=== PATIENT | male | born 1950 | race Caucasian/White ===

== ENCOUNTER 2023-06-12 15:33 | Emergency (ER) | payer OTHER ==
[2023-06-12 18:01] LABS: Absolute Lymphocytes (CBC) 1.7 K/uL (0.7-4.9); Hematocrit 38.4 % (39.6-49.0); Lymphocytes % 11.6 % (15.3-44.8); MCV 90.3 fL (80-100); MPV 8.8 fL (7.6-11.3); RBC Red Blood Cell Count 4.25 M/uL (4.33-5.43)
[2023-06-12 18:21] LABS: Specific Gravity 1.023 (1.005-1.030); Urine Bacteria 20-50 /HPF (<20); Urine Bilirubin NEGATIVE (Negative); Urine Blood 3+ (OVER) (Negative); Urine Clarity Extremely Turbid (Clear); Urine Color Dark-Brown (Yellow); Urine Glucose NEGATIVE (Negative); Urine Protein 2+ (Negative); Urine RBC >50 /HPF (None Seen); Urine Urobilinogen Normal (Normal); Urine WBC Clump Many /HPF (None Seen); Urine pH 5.5 (5.0-7.0)
[2023-06-12 18:25] LABS: Albumin 3.4 g/dL (3.4-5.0); Bilirubin Total 0.4 mg/dL (0.2-1.0); Potassium 4.8 mEq/L (3.5-5.1); Protein, Total 7.2 g/dL (6.4-8.2)
[2023-06-12] MEDS ORDERED: NA CHLORIDE 0.9% 1,000 ML ONE (18:28)
--- NOTE | 2023-06-12 18:38 | ER ---
Nurse's Notes [facility] Name: Timothy Padilla Age: 73 yrs Sex: Male : 1950 Arrival Date: 06/12/2023 Time: 15:33 Bed 14 Private MD: Diagnosis: UTI/ Urinary tract infection, site not specified;Hematuria, unspecified Presentation: 06/12 15:52 Chief complaint: Patient states: "This morning, I started having burning pain with mb9 urination, urgency, frequency, and my urine was pink tingled. Then this afternoon, my urine was red and haven't produced more than a few tbsp of urine and the pain is significant.". Coronavirus screen: Vaccine status: Patient reports receiving the 2nd dose of the covid vaccine. Ebola Screen: No symptoms or risks identified at this time. Initial Sepsis Screen: Does the patient meet any 2 criteria? No. Patient's initial sepsis screen is negative. Does the patient have a suspected source of infection? No. Patient's initial sepsis screen is negative. Risk Assessment: Do you want to hurt yourself or someone else? Patient reports no desire to harm self or others. Onset of symptoms was June 12, 2023. 15:52 Method Of Arrival: Wheelchair mb9 15:52 Acuity: MALIKA 4 mb9 Triage Assessment: 15:56 General: Appears in no apparent distress. Behavior is calm, cooperative. Pain:. Neuro: mb9 Mercado Agitation-Sedation Scale (RASS): 0 - Alert and Calm Level of Consciousness is awake, alert, obeys commands, Oriented to person, place, time, situation, Appropriate for age. Cardiovascular: Patient's skin is warm and dry. Respiratory: Airway is patent Respiratory effort is even, unlabored, Respiratory pattern is regular, symmetrical. : Reports burning with urination, pain with urination, urgency, urinary frequency. Derm: Skin is pink, warm \\T\\ dry. Musculoskeletal: Range of motion: intact in all extremities. Historical: - Allergies: 15:54 No Known Allergies; mb9 - Home Meds: 15:54 Allopurinol Oral [Active]; Metformin Oral [Active]; mb9 - PMHx: 15:54 Hypertensive disorder; CHF; Diabetes mellitus; gout; mb9 - PSHx: 15:54 None; mb9 - Immunization history:: Adult Immunizations up to date. - Social history:: Smoking status: Patient denies any tobacco usage or history of. Screenin:00 [facility] ED Fall Risk Assessment (Adult) History of falling in the last 3 months, kc6 including since admission No falls in past 3 months (0 pts) Confusion or Disorientation No (0 pts) Intoxicated or Sedated No (0 pts) Impaired Gait Yes (1 pt) Mobility Assist Device Used Yes (1 pt) Altered Elimination No (0 pt) Score/Fall Risk Level 0 - 2 = Low Risk. Abuse screen: Denies threats or abuse. Denies injuries from another. Nutritional screening: No deficits noted. Tuberculosis screening: No symptoms or risk factors identified. Assessment: 15:57 Reassessment: see triage assessment. mb9 18:00 General: Appears in no apparent distress. comfortable, obese, unkempt, Behavior is kc6 calm, cooperative, appropriate for age. Neuro: Level of Consciousness is awake, alert, obeys commands, Oriented to person, place, time, situation, Appropriate for age. Cardiovascular: Capillary refill < 3 seconds. Respiratory: Airway is patent Trachea midline Respiratory effort is even, unlabored, Respiratory pattern is regular, symmetrical. GI: No signs and/or symptoms were reported involving the gastrointestinal system. : Urine is blood tinged, Reports burning with urination, pain with urination, urinary frequency. EENT: No signs and/or symptoms were reported regarding the EENT system. Derm: No signs and/or symptoms reported regarding the dermatologic system. Skin is intact, is healthy with good turgor, Skin is pink, warm \\T\\ dry. Musculoskeletal: No signs and/or symptoms reported regarding the musculoskeletal system. Circulation, motion, and sensation intact. Capillary refill < 3 seconds, Range of motion: intact in all extremities. Vital Signs: 15:52 BP 119 / 68; Pulse 89; Resp 18; Temp 98.2; Pulse Ox 97% on R/A; Weight 213.19 kg; mb9 Height 6 ft. 2 in. ; Pain 0/10; 18:35 BP 119 / 100; Pulse 97; Resp 19 S; Pulse Ox 100% on R/A; kc6 19:40 BP 123 / 62; Pulse 79; Resp 18; Pulse Ox 98% on R/A; pf1 15:52 Body Mass Index 60.34 (213.19 kg, 187.96 cm) mb9 15:52 Pain Scale: Adult mb9 ED Course: 15:35 Patient arrived in ED. im 15:54 Triage completed. mb9 15:54 Arm band placed on. mb9 15:56 Vida Pires FNP-C [facility]. kb 15:56 Pato Johnson MD is Attending Physician. kb 18:12 Julia Stanford, CAN is Primary Nurse. kc6 18:15 Patient has correct armband on for positive identification. Bed in low position. Call mm9 light in reach. Side rails up X2. Pulse ox on. NIBP on. 18:15 CBC with Diff Sent. mm9 18:15 CMP Sent. mm9 18:15 Urinalysis w/ reflexes Sent. mm9 18:16 Initial lab(s) drawn, by me, sent to lab. Urine collected: clean catch specimen, blood mm9 tinged. 18:38 Jamil Foster MD is Referral Physician. kb 18:43 Inserted saline lock: 22 gauge in left hand, using aseptic technique. kc6 19:40 No provider procedures requiring assistance completed. IV discontinued, intact, pf1 bleeding controlled, No redness/swelling at site. Pressure dressing applied. 19:42 Provided Education on: prescription education. pf1 Administered Medications: 18:34 Drug: NS 0.9% IV 1000 ml Route: IV; Rate: 1000 ml; Site: left hand; kc6 19:41 Follow up: Response: No adverse reaction; Marked relief of symptoms; IV Status: pf1 Completed infusion; IV Intake: 700ml 18:43 Drug: Rocephin IV 1 grams Route: IV; Rate: calculated rate; Site: left hand; kc6 19:19 Follow up: Response: No adverse reaction; IV Status: Completed infusion; IV Intake: [id number] 19:41 Follow up: Response: No adverse reaction; IV Status: Completed infusion; IV Intake: [id number] Medication: 19:42 VIS not applicable for this client. pf1 Intake: 19:19 IV: 10ml; Total: 10ml. kc6 19:41 IV: 10ml; Total: 20ml. pf1 19:41 IV: 700ml; Total: 720ml. pf1 Outcome: 18:37 Discharge ordered by . kb 19:41 Discharged to home via wheelchair. pf1 19:41 Condition: improved 19:41 Discharge instructions given to patient, Instructed on discharge instructions, follow up and referral plans. Demonstrated understanding of instructions, follow-up care, medications, Prescriptions given X 1. 19:42 Patient left the ED. pf1 Signatures: Vida Pires, CRITICAL POWER INSTALL TECHNICIAN-C CRITICAL POWER INSTALL TECHNICIAN-CkJulia Dhillon RN RN kc6 Josie Jarvis Mary Beth, RN RN mb9 Maggi Miranda RN RN pf1 Ingris Melgar
--- NOTE | 2023-06-12 18:38 | EDPHYS ---
Physician Documentation [facility] Name: Timothy Padilla Age: 73 yrs Sex: Male : 1950 Arrival Date: 06/12/2023 Time: 15:33 Bed 14 Private MD: ED Physician Pato Johnson HPI: 06/12 17:11 This 73 yrs old Male presents to ER via Wheelchair with complaints of Blood in urine. kb 17:11 The patient presents with urinary symptoms, dysuria, urinary frequency, hematuria. kb Onset: The symptoms/episode began/occurred this morning. Modifying factors: The symptoms are alleviated by nothing, the symptoms are aggravated by nothing. Associated signs and symptoms: Pertinent positives: dysuria, hematuria, Pertinent negatives: abdominal pain, constipation, diarrhea, fever, nausea, vomiting. Severity of symptoms: At their worst the symptoms were moderate, in the emergency department the symptoms are unchanged. The patient has not experienced similar symptoms in the past. The patient has not recently seen a physician. Historical: - Allergies: 15:54 No Known Allergies; mb9 - Home Meds: 15:54 Allopurinol Oral [Active]; Metformin Oral [Active]; mb9 - PMHx: 15:54 Hypertensive disorder; CHF; Diabetes mellitus; gout; mb9 - PSHx: 15:54 None; mb9 - Immunization history:: Adult Immunizations up to date. - Social history:: Smoking status: Patient denies any tobacco usage or history of. ROS: 17:10 Constitutional: Negative for fever, chills, and weight loss. kb 17:10 : Positive for urinary symptoms, small amounts, hematuria, burning with urination. 17:10 All other systems are negative. Exam: 17:10 Constitutional: This is a well developed, well nourished patient who is awake, alert, kb and in no acute distress. Head/Face: Normocephalic, atraumatic. ENT: Moist Mucous membranes Cardiovascular: Regular rate and rhythm with a normal S1 and S2. No gallops, murmurs, or rubs. No pulse deficits. Respiratory: Respirations even and unlabored. No increased work of breathing. Talking in full sentences Abdomen/GI: Soft, non-tender. No distention Skin: Warm, dry with normal turgor. Normal color. MS/ Extremity: Pulses equal, no cyanosis. Neurovascular intact. Full, normal range of motion. Neuro: Awake and alert, GCS 15, oriented to person, place, time, and situation. Moves all extremities. Normal gait. Vital Signs: 15:52 BP 119 / 68; Pulse 89; Resp 18; Temp 98.2; Pulse Ox 97% on R/A; Weight 213.19 kg; mb9 Height 6 ft. 2 in. ; Pain 0/10; 18:35 BP 119 / 100; Pulse 97; Resp 19 S; Pulse Ox 100% on R/A; kc6 19:40 BP 123 / 62; Pulse 79; Resp 18; Pulse Ox 98% on R/A; pf1 15:52 Body Mass Index 60.34 (213.19 kg, 187.96 cm) mb9 15:52 Pain Scale: Adult mb9 MDM: 15:56 Patient medically screened. kb 17:10 Differential diagnosis: UTI, calculus of kidney, pyelonephritis. Data reviewed: vital kb signs, nurses notes. 18:34 Management of patient was discussed with the following: Dr Johnson. Agrees with kb antibiotics and follow up with urology. Counseling: I had a detailed discussion with the patient and/or guardian regarding: the historical points, exam findings, and any diagnostic results supporting the discharge/admit diagnosis, lab results, the need for outpatient follow up, a family practitioner, a urologist, to return to the emergency department if symptoms worsen or persist or if there are any questions or concerns that arise at home. 06/12 16:01 Order name: CBC with Diff; Complete Time: 18:20 kb 06/12 16:01 Order name: CMP; Complete Time: 18:30 kb 06/12 16:01 Order name: Urinalysis w/ reflexes; Complete Time: 18:23 kb 06/12 18:25 Order name: Urine Culture EDMS 06/12 16:01 Order name: IV Saline Lock; Complete Time: 18:34 kb 06/12 16:01 Order name: Labs collected and sent; Complete Time: 18:15 kb Administered Medications: 18:34 Drug: NS 0.9% IV 1000 ml Route: IV; Rate: 1000 ml; Site: left hand; kc6 19:41 Follow up: Response: No adverse reaction; Marked relief of symptoms; IV Status: pf1 Completed infusion; IV Intake: 700ml 18:43 Drug: Rocephin IV 1 grams Route: IV; Rate: calculated rate; Site: left hand; kc6 19:19 Follow up: Response: No adverse reaction; IV Status: Completed infusion; IV Intake: [id number] 19:41 Follow up: Response: No adverse reaction; IV Status: Completed infusion; IV Intake: [id number] Disposition: 20:20 Co-signature as Attending Physician, Pato Johnson MD I agree with the assessment and kdr plan of care. Disposition Summary: 06/12/23 18:37 Discharge Ordered Location: Home kb Condition: Stable kb Diagnosis - UTI/ Urinary tract infection, site not specified kb - Hematuria, unspecified kb Followup: kb - With: Emergency Department - When: As needed - Reason: Worsening of condition Followup: kb - With: Private Physician - When: 2 - 3 days - Reason: Recheck today's complaints, Continuance of care, Re-evaluation by your physician Followup: kb - With: Jamil Foster MD - When: 2 - 3 days - Reason: Recheck today's complaints Discharge Instructions: - Discharge Summary Sheet kb - Hematuria, Adult kb - Urinary Tract Infection, Adult, [id number] kb Forms: - Medication Reconciliation Form kb - Thank You Letter kb - Antibiotic Education kb - Prescription Opioid Use kb - Patient Portal Instructions kb Prescriptions: - Augmentin 875-125 mg Oral Tablet - take 1 tablet by ORAL route every 12 hours for 10 days; 20 tablet; Refills: 0, kb Product Selection Permitted Signatures: Dispatcher [employer] EDVida Moran, MERONC ELECTRIC DISTRIBUTION ENGINEER-Pato Dunaway MD MD [facility] Julia Stanford RN RN kc6 Celina Lutz RN RN mb9 Maggi Miranda RN pf1 Corrections: (The following items were deleted from the chart) 16:13 16:02 Stone Protocol+CT.RAD.BRZ ordered. EDNJ EDMS
[2023-06-12] MEDS ORDERED: CEFTRIAXONE 1000 MG/VIAL ONE (18:48)
[2023-06-12 19:52] VITALS: TEMP 98.2
[2023-06-12 19:54] VITALS: BP 123/62; O2SAT 98
== END 2023-06-12 19:42 | disposition home or self-care (01) ==
LOC: ER 15:33
DX: N39.0 Urinary tract infection, site not specified (principal); E11.9 Type 2 diabetes mellitus without complications; I10 Essential (primary) hypertension; I50.9 Heart failure, unspecified
CPT/HCPCS: 96365; 96361; 87088; 85025; 81001; 87086; 36415; 80053; 99284; J7030; J0696

== ENCOUNTER 2024-05-17 17:07 | Emergency (ER) | payer OTHER ==
[2024-05-17] MEDS ORDERED: NA CHLORIDE 0.9% 500 ML ONE (18:51)
[2024-05-17 19:39] LABS: Absolute Basophils 0.1 K/uL (0-0.5); Absolute Eosinophils 0.2 K/uL (0-0.5); Absolute Lymphocytes (CBC) 1.7 K/uL (0.7-4.9); Absolute Monocytes 1.1 K/uL (0.1-1.3); Basophils % 0.5 % (0-1.3); Eosinophils % 1.2 % (0-4.4); Hematocrit 37.5 % (39.6-49.0); Hemoglobin 11.8 g/dL (13.6-17.9); Lymphocytes % 13.3 % (15.3-44.8); MCH 26.9 pg (27.0-35.0); MCHC 31.4 g/dL (32.0-36.0); MCV 85.7 fL (80-100); MPV 8.8 fL (7.6-11.3); Monocytes % 8.1 % (3.3-12.3); Neutrophils % 76.9 % (41.7-73.7); Nucleated Red Blood Cells % 0.1 % (0-0); Platelets 256 thou/uL (152-406); RBC Red Blood Cell Count 4.37 M/uL (4.33-5.43); Red Cell Distribution Width 19.2 % (12.1-15.2)
[2024-05-17 19:59] LABS: Anion Gap 11.6 mEq/L (5.0-15.0); Potassium 4.6 mEq/L (3.5-5.1)
[2024-05-17 21:59] LABS: Specific Gravity 1.022 (1.005-1.030); Sqamous Epithelial <5 /HPF (None Seen); Urine Bacteria None Seen /HPF (<20); Urine Bilirubin NEGATIVE (Negative); Urine Blood Negative (Negative); Urine Clarity Turbid (Clear); Urine Color Yellow (Yellow); Urine Culture Reflex Order NOT NEEDED; Urine Glucose NEGATIVE (Negative); Urine Ketones NEGATIVE (Negative); Urine Microscopic Reflex YN ORDER UMIC; Urine Mucus Slight /HPF (None Seen); Urine Nitrite NEGATIVE (Negative); Urine Protein TRACE (Negative); Urine RBC <5 /HPF (None Seen); Urine Urobilinogen Normal (Normal); Urine WBC <5 /HPF (<5); Urine pH 5.5 (5.0-7.0)
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
[2024-05-18 04:22] VITALS: BP 136/76; TEMP 97.9; O2SAT 99
== END 2024-05-18 01:47 | disposition home or self-care (01) ==
LOC: ER 17:07
DX: T67.5XXA Heat exhaustion, unspecified, initial encounter (principal); R11.2 Nausea with vomiting, unspecified
CPT/HCPCS: 85025; 81001; 80048; 36415; 82550; 99284; J7040

== ENCOUNTER 2024-05-18 16:28 | Emergency (ER) | payer OTHER ==
[2024-05-18 19:08] LABS: Absolute Basophils 0.1 K/uL (0-0.5); Absolute Eosinophils 0.1 K/uL (0-0.5); Absolute Lymphocytes (CBC) 1.9 K/uL (0.7-4.9); Absolute Monocytes 1.1 K/uL (0.1-1.3); Absolute Neutrophil 12.3 K/uL (1.8-8.0); Basophils % 0.9 % (0-1.3); Eosinophils % 0.9 % (0-4.4); Hematocrit 38.2 % (39.6-49.0); Lymphocytes % 12.4 % (15.3-44.8); MCH 26.9 pg (27.0-35.0); MCHC 31.4 g/dL (32.0-36.0); MCV 85.7 fL (80-100); MPV 8.9 fL (7.6-11.3); Monocytes % 6.8 % (3.3-12.3); Nucleated RBC Absolute Count 0.1 (0-0); Nucleated Red Blood Cells % 0.4 % (0-0); Platelets 252 thou/uL (152-406); RBC Red Blood Cell Count 4.45 M/uL (4.33-5.43); Red Cell Distribution Width 18.8 % (12.1-15.2)
[2024-05-18 19:25] LABS: Anion Gap 12.9 mEq/L (5.0-15.0); Magnesium 1.3 mg/dL (1.6-2.4); Potassium 4.9 mEq/L (3.5-5.1)
--- NOTE | 2024-05-18 19:50 | ER ---
Nurse's Notes [facility] Name: Timothy Padilla Age: 73 yrs Sex: Male : 1950 Arrival Date: 05/18/2024 Time: 16:28 Bed 21 Private MD: Diagnosis: Weakness;Hypomagnesemia Presentation: 05/18 17:21 Chief complaint: Patient states: Pt states he urinated on himself while sitting in tl4 wheelchair. Pt c/o burning in his groin from irritation. Pt also c/o chills, hands being cold. Pt states he does not have power at his residence. Coronavirus screen: At this time, the client does not indicate any symptoms associated with coronavirus-19. Ebola Screen: No symptoms or risks identified at this time. Initial Sepsis Screen: Does the patient meet any 2 criteria? No. Patient's initial sepsis screen is negative. Does the patient have a suspected source of infection? No. Patient's initial sepsis screen is negative. Risk Assessment: Do you want to hurt yourself or someone else? Patient reports no desire to harm self or others. Onset of symptoms was May 17, 2024. 17:21 Method Of Arrival: Wheelchair tl4 17:21 Acuity: MALIKA 5 tl4 Triage Assessment: 17:30 General: Appears in no apparent distress. Behavior is calm, cooperative. Pain: tl4 Complains of pain in pelvis. EENT: No signs and/or symptoms were reported regarding the EENT system. Neuro: Level of Consciousness is awake, alert, obeys commands, Oriented to person, place, time, situation. Cardiovascular: Capillary refill < 3 seconds Patient's skin is warm and dry. Respiratory: Airway is patent Respiratory effort is even, unlabored, Respiratory pattern is regular, symmetrical. GI: No signs and/or symptoms were reported involving the gastrointestinal system. : No signs and/or symptoms were reported regarding the genitourinary system. Derm: No signs and/or symptoms reported regarding the dermatologic system. Musculoskeletal: No signs and/or symptoms reported regarding the musculoskeletal system. Historical: - Allergies: 17:29 No Known Allergies; tl4 - Home Meds: 17:38 allopurinol 300 mg oral tablet 1 tab daily [Active]; metformin 850 mg oral tablet 1 tab kb3 2 times per day [Active]; apixaban 5 mg oral tablet 1 tab 2 times per day [Active]; clonidine HCl 0.1 mg Oral tablet 1 tab daily [Active]; furosemide 40 mg Oral tablet 1 tab daily [Active]; glipizide 10 mg Oral tablet 1 tab 2 times per day [Active]; hydralazine 50 mg Oral tablet 1 tab 2 times per day [Active]; losartan 100 mg oral tablet 1 tab twice a day [Active]; meloxicam 15 mg oral tablet 1 tab daily [Active]; metoprolol tartrate 100 mg Oral tablet 1 tab 2 times per day [Active]; potassium chloride 10 mEq Oral tablet, extended release 1 tab M,W,F [Active]; rosuvastatin 5 mg oral tablet 1 tab daily [Active]; spironolactone 50 mg Oral tablet 1 tabs daily [Active]; - PMHx: 17:29 CHF; diabetes mellitus; Gout; Hypertensive disorder; tl4 17:38 Osteoarthritis; kb3 - PSHx: 17:29 None; tl4 - Immunization history:: Adult Immunizations unknown. - Infectious Disease History:: Denies. - Social history:: Smoking status: Patient denies any tobacco usage or history of. - Family history:: not pertinent. - Hospitalizations: : No recent hospitalization is reported. Screenin:00 [facility] ED Fall Risk Assessment (Adult) History of falling in the last 3 months, vc1 including since admission No falls in past 3 months (0 pts) Confusion or Disorientation No (0 pts) Intoxicated or Sedated No (0 pts) Impaired Gait Yes (1 pt) Mobility Assist Device Used Yes (1 pt) Altered Elimination Yes (1 pt) Score/Fall Risk Level 3 or more points = High Risk Oriented to surroundings, Maintained a safe environment, Educated pt \T\ family on fall prevention, incl call for assistance when getting out of bed. Abuse screen: Denies threats or abuse. Nutritional screening: No deficits noted. Tuberculosis screening: No symptoms or risk factors identified. Assessment: 17:52 General: Attempted to assist patient with medical [facility] placement throughout the day kb3 after he was seen and discharged from ER last night. Pt is uncooperative with requirements to bring his medications from home. Informed him just prior to checking in that he had been granted a bed at the [facility] and he stated that he was not getting his medications from home unless I wanted to go get them. I told him that I could not do that and he stated that he would just check in to the ER again. [facility] notified that pt was not accepting the bed. 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 Pt stating that he can not get out of vc1 wheelchair and therefore will not be leaving the hospital. Pt states he might as well just throw himself on the ground and if we had to call the police because he wasn't going anywhere. Pt states I came here because I don't have any power and thought I would be admitted. I live in [facility] and my house is on [address]. Pt informed that he cannot be admitted because he doesn't meet criteria. Cleaned patient up, put on clean brief, placed in dry gown. Will attempt to find a hotel open the patient can go to but as of now the patient is discharged and no longer under my care. Vital Signs: 17:21 BP 143 / 90; Pulse 94; Resp 16; Temp 97.2(O); Pulse Ox 98% on R/A; Weight 215.46 kg; tl4 Height 6 ft. 2 in. ; 17:21 Body Mass Index 60.99 (215.46 kg, 187.96 cm) tl4 ED Course: 16:34 Patient arrived in ED. mg5 16:49 Zane Hansen MD is Attending Physician. rn 17:29 Triage completed. tl4 17:31 Arm band placed on right wrist. EKG completed in triage. Results shown to MD. tl4 17:59 Initial lab(s) drawn, by me, sent to lab. Inserted saline lock: 22 gauge in left hand, zm using aseptic technique. Blood collected. 18:00 CBC with Diff Sent. zm 18:00 Basic Metabolic Panel Sent. zm 18:00 Magnesium Sent. zm 18:56 Lab(s) recollected, by computer lab para professional, sent to lab. ll1 22:09 No provider procedures requiring assistance completed. IV discontinued, intact, vc1 bleeding controlled, No redness/swelling at site. Pressure dressing applied. Administered Medications: 20:03 Drug: Magnesium Sulfate IVPB 1 grams IVPB once over 1 hrs Route: IVPB; Infused Over: 15 vc1 mins; Site: left hand; Medication: 21:52 VIS not applicable for this client. vc1 Outcome: 19:50 Discharge ordered by . rn 22:09 Discharged to Unknown Pt attempted to find a hotel or a large vehicle to rent vc1 22:09 Condition: good 22:09 Discharge instructions given to patient, Instructed on discharge instructions, follow up and referral plans. Demonstrated understanding of instructions, follow-up care, 22:10 Patient left the ED. 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 Pt stating that he can not get vc1 out of wheelchair and therefore will not be leaving the hospital. Pt states he might as well just throw himself on the ground and if we had to call the police because he wasn't going anywhere. Pt states I came here because I don't have any power and thought I would be admitted. I live in [facility] [place] [facility] and my house is on [address]. Pt informed that he cannot be admitted because he doesn't meet criteria. Cleaned patient up, put on clean brief, placed in dry gown. Will attempt to find a hotel open the patient can go to but as of now the patient is discharged and no longer under my care. vc1
--- NOTE | 2024-05-18 19:50 | EDPHYS ---
Physician Documentation [facility] Name: Timothy Padilla Age: 73 yrs Sex: Male : 1950 Arrival Date: 05/18/2024 Time: 16:28 Bed 21 Private MD: ED Physician Zane Hansen HPI: 05/18 18:18 This 73 yrs old Male presents to ER via Wheelchair with complaints of weakness. rn 18:18 Patient reports had to sign in because he wants to be evaluated again. Patient seen rn last night for heat exhaustion, discharged has been sitting in the lobby. ER director [facility] and patient did not hold up his side of the bargain. Patient insist that he was told by the PA that they would send a transport for him to go to the PA. Patient denies any fever. No new symptoms. No vomiting. States urinated on himself in the wheelchair that he was sitting in the lobby and feels irritation from sitting in his urine. No other acute complaints. Patient is morbidly obese and states in the last year has only mated down his stairs from his home to separate occasions.. Severity of symptoms: At their worst the symptoms were mild in the emergency department the symptoms are unchanged. The patient has not experienced similar symptoms in the past. The patient has been recently seen at the [facility] Emergency Department. 18:21 Patient states that he would like to be admitted because his home does not have power. rn Historical: - Allergies: 17:29 No Known Allergies; tl4 - Home Meds: 17:38 allopurinol 300 mg oral tablet 1 tab daily [Active]; metformin 850 mg oral tablet 1 tab kb3 2 times per day [Active]; apixaban 5 mg oral tablet 1 tab 2 times per day [Active]; clonidine HCl 0.1 mg Oral tablet 1 tab daily [Active]; furosemide 40 mg Oral tablet 1 tab daily [Active]; glipizide 10 mg Oral tablet 1 tab 2 times per day [Active]; hydralazine 50 mg Oral tablet 1 tab 2 times per day [Active]; losartan 100 mg oral tablet 1 tab twice a day [Active]; meloxicam 15 mg oral tablet 1 tab daily [Active]; metoprolol tartrate 100 mg Oral tablet 1 tab 2 times per day [Active]; potassium chloride 10 mEq Oral tablet, extended release 1 tab M,W,F [Active]; rosuvastatin 5 mg oral tablet 1 tab daily [Active]; spironolactone 50 mg Oral tablet 1 tabs daily [Active]; - PMHx: 17:29 CHF; diabetes mellitus; Gout; Hypertensive disorder; tl4 17:38 Osteoarthritis; kb3 - PSHx: 17:29 None; tl4 - Immunization history:: Adult Immunizations unknown. - Infectious Disease History:: Denies. - Social history:: Smoking status: Patient denies any tobacco usage or history of. - Family history:: not pertinent. - Hospitalizations: : No recent hospitalization is reported. ROS: 18:21 Constitutional: Negative for fever, chills, and weight loss, Cardiovascular: Negative rn for chest pain, palpitations, and edema, Respiratory: Negative for shortness of breath, cough, wheezing, and pleuritic chest pain, Abdomen/GI: Negative for abdominal pain, nausea, vomiting, diarrhea, and constipation, MS/Extremity: Negative for injury and deformity, Neuro: Negative for headache, numbness, tingling, and seizure, Exam: 18:21 Constitutional: Morbidly obese male, no acute distress, very argumentative Head/Face: rn Normocephalic, atraumatic. ENT: Moist mucous membranes Cardiovascular: Regular rate and rhythm. No pulse deficits. Respiratory: No increased work of breathing, no retractions or nasal flaring. Abdomen/GI: Soft, non-tender Neuro: Awake and alert, GCS 15 Vital Signs: 17:21 BP 143 / 90; Pulse 94; Resp 16; Temp 97.2(O); Pulse Ox 98% on R/A; Weight 215.46 kg; tl4 Height 6 ft. 2 in. ; 17:21 Body Mass Index 60.99 (215.46 kg, 187.96 cm) tl4 MDM: 16:49 Patient medically screened. rn 19:46 Differential Diagnosis Dehydration, heat exhaustion, electrolyte disorder, rn deconditioning, obesity. Data reviewed: vital signs, nurses notes, old medical records, lab test result(s), and as a result, I will discharge patient. Counseling: I had a detailed discussion with the patient and/or guardian regarding the historical points, exam findings, and any diagnostic results supporting the discharge/admit diagnosis, lab results, the need for outpatient follow up, to return to the emergency department if symptoms worsen or persist or if there are any questions or concerns that arise at home. Special discussion: I discussed with the patient/guardian in detail that at this point there is no indication for admission to the hospital. It is understood, however, that if the symptoms persist or worsen the patient needs to return immediately for re-evaluation. ED course: Patient is very argumentative, insist that the nurses do everything for him including changing him despite being able to stand and lack of paralysis. We went the extra step and secured half-way for him tonight and patient passed on the opportunity and has since lost his bed likely. No acute findings and workup. Has mild elevation of WBC but no signs of infection or symptoms of infection. Urinalysis earlier today or last night was negative for infection. Patient is afebrile. No indication at this time for emergent admission.. 05/18 17:41 Order name: CBC with Diff; Complete Time: 19:15 rn 05/18 17:41 Order name: Basic Metabolic Panel; Complete Time: 19:26 rn 05/18 17:41 Order name: Magnesium; Complete Time: 19:26 rn 05/18 17:41 Order name: IV Start; Complete Time: 18:00 rn 05/18 18:16 Order name: Labs - recollect needed: all labs; Complete Time: 18:55 ll1 Administered Medications: 20:03 Drug: Magnesium Sulfate IVPB 1 grams IVPB once over 1 hrs Route: IVPB; Infused Over: 15 vc1 mins; Site: left hand; Disposition Summary: 05/18/24 19:50 Discharge Ordered Notes: Location: Home rn Problem: an ongoing problem rn Symptoms: have improved rn Condition: Stable rn Diagnosis - Weakness rn - Hypomagnesemia rn Followup: rn - With: Private Physician - When: As needed - Reason: Recheck today's complaints, Re-evaluation by your physician Discharge Instructions: - Discharge Summary Sheet rn - Hypomagnesemia rn - Weakness rn - Hypokalemia rn Forms: - Medication Reconciliation Form rn - Antibiotic internal affairs commander - Prescription Opioid Use rn - Patient Portal Instructions rn - Leadership Thank You Letter rn Signatures: Dispatcher [employer] Zane Panda MD MD rn Lewis, Lynsay RN RN ll1 Isabel Corley RN RN vc1 Nilam Erickson RN RN kb3 Shoaib Argueta, RN RN tl4 Corrections: (The following items were deleted from the chart) 17:29 Home Meds: Allopurinol Oral; tl4 kb3 17:29 Home Meds: Metformin Oral; tl4 kb3
[2024-05-18] MEDS ORDERED: MAGNESIUM SULFATE 1 gm IVPB 1 GM/100 ML BAG IV ONE (19:56)
[2024-05-19 04:26] VITALS: BP 143/90; TEMP 97.2; O2SAT 98
== END 2024-05-18 22:10 | disposition home or self-care (01) ==
LOC: ER 16:28
DX: R53.1 Weakness (principal); E83.42 Hypomagnesemia
CPT/HCPCS: 85025; 80048; 36415; 83735; 96374; 99284; J3475